=== PATIENT | male | born 1960 | race Caucasian/White ===

== ENCOUNTER 2020-05-30 12:47 | Emergency (ER) | payer BC ==
[2020-05-30] MEDS ORDERED: Diazepam 5 MG TAB ONE (13:14)
--- NOTE | 2020-05-30 14:04 | CT ---
CT OF THE CHEST WITHOUT CONTRAST: 05/30/[address] was done following trauma. The mediastinum appears intact within the limitations of a noncontrast study. There was no sign of mediastinal hematoma, widening or other acute change. The a scending aorta was perhaps a little wider than some (3.4 cm) as is the main pulmonary artery (3.7 cm) . This is not acute. The lungs are clear and fully inflated with no sign of pneumothorax, parenchymal contusion or pleural fluid. A large calcified granuloma is seen in the left upper lobe as well as so me calcified nodes near the left hilum. There is some pleural thickening in the posterior part of eac h hemithorax near the diaphragm, particularly the left hemithorax. This appears to be longstanding. T he adjacent ribs appear intact. Scans into the upper abdomen showed the visible portions of the liver, spleen, and pancreas to appear intact with no sign of laceration or hematoma. A small hiatal hernia was present. The upper half of each kidney was unremarkable. IMPRESSION: 1. No acute traumatic findings of concern. 2. Minor pleural thickening in the low posterior hemithorax bilaterally, left more than right. T his does not appear recent. Preliminary report called to Glad[facility] in ER at [id number] on 05/30/20. POS: HOME
== END 2020-05-30 13:54 | disposition home or self-care (01) ==
LOC: BURERS 12:47
DX: S23.41XA Sprain of ribs, initial encounter (principal); S20.212A Contusion of left front wall of thorax, initial encounter; F17.220 Nicotine dependence, chewing tobacco, uncomplicated; W19.XXXA Unspecified fall, initial encounter
CPT/HCPCS: 71250